=== PATIENT | female | born 1970 | race Asian ===

== ENCOUNTER 2023-03-19 11:44 | Emergency (ER) | payer OTHER ==
[~2023-03-19] VITALS: Ht 153.7 cm; Wt 84.1 kg
[~2023-03-19 11:44] MED LIST: ALPR-705 PO
[2023-03-19 11:57] VITALS: TEMP 98.9
[2023-03-19 14:18] VITALS: BP 133/82; PULSE 84; RESP 16
== END 2023-03-19 14:59 | disposition home or self-care (01) ==
LOC: EMS 12:04
DX: S60.111A Contusion of right thumb with damage to nail, initial encounter (principal); Z88.6 Allergy status to analgesic agent; W23.0XXA Caught, crushed, jammed, or pinched between moving objects, initial encounter; Y93.89 Activity, other specified; Y92.89 Other specified places as the place of occurrence of the external cause; Y99.8 Other external cause status
CPT/HCPCS: 99283